=== PATIENT | female | born 1965 | race Caucasian/White ===

== ENCOUNTER 2023-05-02 01:53 | Emergency (ER) | payer MEDICAID ==
[~2023-05-02] VITALS: Ht 175.3 cm; Wt 111.4 kg
[~2023-05-02 01:53] MED LIST: ACET-1025 PO; ATOR40TA72 PO; CANNABIS; DICL100G59 TOP; DOXY25TA58 PO; DULO20CA18 PO; ERGO500054 PO; FLUT16SP2 BOTHNARES; LIDOCAINE 5% PATCH TOP; LOSA25TA41 PO; MELO-102 PO
[2023-05-02] MEDS ORDERED: dexamethasone sod phosphate 10mg/ml inj IV STA (04:02)
[2023-05-02] MEDS ORDERED: LORazepam 2 mg/ml vial IV ONE (04:05)
[2023-05-02] MEDS ORDERED: acetaminophen 325mg tablet PO ONE (04:05)
[2023-05-02] MEDS ORDERED: morphine 4 MG/ML inj SYRINge IV ONE (04:05)
[2023-05-02] MEDS ORDERED: ketorolac trometh. 30mg/ml inj. IV ONE (04:05)
[2023-05-02] MEDS ORDERED: normal saline 1000ML IV soln IVB ONE (04:05)
--- NOTE | 2023-05-02 04:34 | NUR ---
LABS AND FLUIDS DC PER MD. MED ORDERS CHANGED TO IM PER MD.
[2023-05-02] MEDS ORDERED: dexamethasone sod phosphate 10mg/ml inj IM STA (04:35)
[2023-05-02] MEDS ORDERED: ketorolac trometh. 30mg/ml inj. IM STA (04:35)
[2023-05-02 06:50] VITALS: BP 164/82; PULSE 69; RESP 18; TEMP 98.2; O2SAT 97
[2023-05-02] MEDS ORDERED: ACET-75 PO (08:19)
[2023-05-02] MEDS ORDERED: NAPR-56 PO (08:19)
[2023-05-02] MEDS ORDERED: CYCL-394 PO (08:19)
[2023-05-02] MEDS ORDERED: PRED20TA PO (08:19)
[2023-05-11] MEDS ORDERED: TRAM50TA2 PO (12:22)
[2023-05-11] MEDS ORDERED: DOXY25TA58 PO (12:22)
[2023-05-11] MEDS ORDERED: ATOR40TA72 PO (12:22)
[2023-05-11] MEDS ORDERED: LOSA25TA41 PO (12:22)
[2023-05-11] MEDS ORDERED: DULO20CA18 PO (12:22)
== END 2023-05-02 09:03 | disposition home or self-care (01) ==
LOC: ER 01:54
DX: M54.59 Other low back pain (principal); I10 Essential (primary) hypertension
CPT/HCPCS: 72131; 96372; 99285; J1100; J1885; J7030